=== PATIENT | male | born 1960 | race Caucasian/White ===

== ENCOUNTER → 2018-06-17 | Outpatient (CLI) | payer OTHER ==
[~2018-06-17] MED LIST: ALBU90OI INH; Bactrim Ds Tab1 EACH PO; CEPH500 PO; CIPR500 PO; CIPRO500 MG PO; CLIN300 PO; CYCL10 PO; Cipro500 MG PO; ERYT.5TO RIGHTEYE; HYDACE5 PO; IBUP800 PO; LEVFLO500 PO; NAPR500 PO; Norco 10-325 T1 EACH PO; Norco 5-325 Ta1 EACH PO; ONDA4ODT MM; OXYACE5T PO; PENVK500 PO; Percocet 5-3251 EACH PO; Pyridium200 MG PO; RXCLIN PO; RXHYD5325 PO; RXHYDACE PO; RXOXYACE PO; RXPENVK250 PO; SPACE CHAMBER1 EACH MC; SULTRIDS PO; TAMS.4ER PO; TRAM50 PO; Zofran Odt8 MG SL
[2018-06-19 03:14] LABS: HBSAG SCREEN Negative (Negative); HEP A AB, IGM Negative (Negative); HEP B CORE AB, IGM Negative (Negative); HEP C VIRUS AB <0.1 (0.0-0.9); HIV SCREEN 4TH GENERATION WRFX Non Reactive (Non Reactive)
[2018-06-19 23:09] LABS: CHLAMYDIA TRACHOMATIS, NAA Negative (Negative); NEISSERIA GONORRHOEAE, NAA Negative (Negative)
== END | disposition home or self-care (01) ==
LOC: LAB EV 17:09 → LAB SHORT 17:09
PROVIDERS: Physician Assistant Medical
DX: N39.0 Urinary tract infection, site not specified (principal)
CPT/HCPCS: 80074; 86592; 87086; 87389; 87491; 87591

== ENCOUNTER → 2018-06-23 | Outpatient (CLI) | payer OTHER | LOC: LAB EV 17:14 → LAB SHORT 17:14 | DX: N39.0 Urinary tract infection, site not specified (principal) | CPT/HCPCS: 87086 ==

== ENCOUNTER → 2018-07-04 | Outpatient (CLI) | payer OTHER ==
[2018-07-04 11:58] LABS: Source, Urine Clean Catch
[2018-07-04 12:06] LABS: Bacteria Many /hpf; Squamous Epithelial Cells Rare /hpf (Few); White Blood Cells, Urine TNTC /hpf (0-5)
[2018-07-04 12:15] LABS: BASOPHILS ABSOLUTE AUTO 0.07 K/mm3 (0.00-0.23); BASOPHILS PERCENT AUTO 1 % (0-2); EOSINOPHILS ABSOLUTE AUTO 0.19 K/mm3 (0.00-0.68); EOSINOPHILS PERCENT AUTO 1 % (0-6); Hematocrit 39.9 % (37.0-53.0); Hemoglobin 13.6 g/dL (13.5-17.5); IMMATURE GRAN ABSOLUTE AUTO 0.05 K/mm3 (0.00-0.10); IMMATURE GRAN PERCENT AUTO 0 % (0-1); LYMPHOCYTES ABSOLUTE AUTO 1.79 K/mm3 (0.84-5.20); LYMPHOCYTES PERCENT AUTO 12 % (21-46); MONOCYTES ABSOLUTE AUTO 1.45 K/mm3 (0.16-1.47); MONOCYTES PERCENT AUTO 10 % (4-13); Mean Corpuscular HGB 29.1 pg (26.0-34.0); Mean Corpuscular HGB Conc 34.1 g/dL (31.5-36.5); Mean Corpuscular Volume 85 fL (80-100); NEUTROPHILS ABSOLUTE AUTO 11.71 K/mm3 (1.96-9.15); NEUTROPHILS PERCENT AUTO 77 % (41-73); Platelet Count 366 K/mm3 (150-400); RDW Coefficient Variation 12.4 % (11.7-14.2); RDW Standard Deviation 38.2 fL (35.1-46.3); Red Blood Cell Count 4.68 M/mm3 (4.30-5.90); White Blood Cell Count 15.26 K/mm3 (4.00-11.30)
[2018-07-04 12:29] LABS: Albumin, Blood 3.3 g/dL (3.4-5.0); Albumin/Globulin Ratio 0.8 (0.8-1.8); Bilirubin, Total 1.1 mg/dL (0.1-1.0); Bun/Creatinine Ratio 10.3 (12.0-20.0); Calcium, Blood 8.9 mg/dL (8.5-10.1); Creatinine, Blood 1.36 mg/dL (0.60-1.20); Globulin, Blood 3.9 g/dL (2.2-4.0); Potassium, Blood 4.4 mmol/L (3.5-5.5); Total Protein, Blood 7.2 g/dL (6.4-8.2)
[2018-07-04 17:43] LABS: PSA, %Free 7.9 %
== END | disposition home or self-care (01) ==
LOC: LAB SHORT 11:57 → LAB EV 11:57
PROVIDERS: General Practice
DX: R31.9 Hematuria, unspecified (principal); R30.0 Dysuria
CPT/HCPCS: 80053; 81015; 84153; 84154; 85025; 87086

== ENCOUNTER 2019-02-18 06:58 | Emergency (ER) | payer OTHER ==
[~2019-02-18] VITALS: Ht 190.5 cm; Wt 90.7 kg
[2019-02-18 07:34] LABS: BASOPHILS ABSOLUTE AUTO 0.06 K/mm3 (0.00-0.23); BASOPHILS PERCENT AUTO 1 % (0-2); EOSINOPHILS ABSOLUTE AUTO 0.07 K/mm3 (0.00-0.68); EOSINOPHILS PERCENT AUTO 1 % (0-6); Hematocrit 39.5 % (37.0-53.0); Hemoglobin 13.5 g/dL (13.5-17.5); IMMATURE GRAN ABSOLUTE AUTO 0.05 K/mm3 (0.00-0.10); IMMATURE GRAN PERCENT AUTO 0 % (0-1); LYMPHOCYTES ABSOLUTE AUTO 1.23 K/mm3 (0.84-5.20); LYMPHOCYTES PERCENT AUTO 9 % (21-46); MONOCYTES PERCENT AUTO 6 % (4-13); Mean Corpuscular HGB Conc 34.2 g/dL (31.5-36.5); Mean Corpuscular Volume 85 fL (80-100); Mean Platelet Volume 9.6 fL (9.1-12.4); NEUTROPHILS ABSOLUTE AUTO 10.83 K/mm3 (1.96-9.15); NEUTROPHILS PERCENT AUTO 83 % (41-73); Platelet Count 291 K/mm3 (150-400); RDW Coefficient Variation 11.9 % (11.7-14.2); RDW Standard Deviation 36.3 fL (35.1-46.3); Red Blood Cell Count 4.66 M/mm3 (4.30-5.90); White Blood Cell Count 13.04 K/mm3 (4.00-11.30)
[2019-02-18 07:53] LABS: Alanine Aminotransfer (ALT/SGP 28 U/L (12-78); Albumin, Blood 3.4 g/dL (3.4-5.0); Albumin/Globulin Ratio 0.8 (0.8-1.8); Alk Phos 110 U/L (50-136); Anion Gap 9 mmol/L (6-16); Aspartate Aminotrans (AST/SGOT 15 U/L (12-37); Bilirubin, Total 0.9 mg/dL (0.1-1.0); Blood Urea Nitrogen 28 mg/dL (8-24); Bun/Creatinine Ratio 23.9 (12.0-20.0); CO2, Blood 25 mmol/L (21-32); Calcium, Blood 9.2 mg/dL (8.5-10.1); Chloride, Blood 100 mmol/L (98-108); Creatinine, Blood 1.17 mg/dL (0.60-1.20); Globulin, Blood 4.1 g/dL (2.2-4.0); Glomerular Filtration Rate >60 (60-); Glucose, Blood 418 mg/dL (70-99); Potassium, Blood 3.8 mmol/L (3.5-5.5); Sodium, Blood 134 mmol/L (136-145); Total Protein, Blood 7.5 g/dL (6.4-8.2)
[2019-02-18 08:07] LABS: Source, Urine Clean Catch
[2019-02-18 08:10] LABS: Bilirubin, Urine Neg (Neg); Blood, Urine 5+ (Neg); Glucose Qualitative, Urine 4+ (Neg); Ketones, Urine 1+ (Neg); Leukocyte Esterase, Urine 3+ (Neg); Nitrite, Urine Neg (Neg); Protein, Urine 2+ (Neg); Urobilinogen, Urine NORM (Normal)
[2019-02-18 08:24] LABS: Appearance, Urine Cloudy (Clear); Color, Urine Yellow (P-Yellow)
[2019-02-18 08:28] LABS: White Blood Cells, Urine TNTC /hpf (0-5)
[2019-02-18 08:29] LABS: Bacteria Few /hpf; Squamous Epithelial Cells Rare /hpf (Few)
== END 2019-02-18 11:52 | disposition left against medical advice (07) ==
LOC: ER 06:58
PROVIDERS: Emergency Medicine
DX: N13.6 Pyonephrosis (principal); Z87.442 Personal history of urinary calculi; Z87.891 Personal history of nicotine dependence
CPT/HCPCS: 51702; 74176; 80053; 81001; 83690; 85025; 87086; 87147; 96374-59; 96375-59; 99284-25; J0696; J2405; J3010; J7030

== ENCOUNTER 2019-02-18 12:35 | Emergency (ER) | payer OTHER ==
[~2019-02-18] VITALS: Ht 190.5 cm; Wt 86.2 kg
== END 2019-02-18 15:19 | disposition short-term general hospital (02) ==
LOC: ER 12:35
DX: N20.0 Calculus of kidney (principal); Z87.442 Personal history of urinary calculi; Z87.891 Personal history of nicotine dependence
CPT/HCPCS: 99284

== ENCOUNTER 2019-02-24 20:02 | Emergency (ER) | payer OTHER ==
[~2019-02-24] VITALS: Ht 190.5 cm; Wt 81.7 kg
== END 2019-02-24 20:33 | disposition home or self-care (01) ==
LOC: ER 20:02
DX: N20.0 Calculus of kidney (principal); Z87.891 Personal history of nicotine dependence
CPT/HCPCS: 99283

== ENCOUNTER 2019-03-20 19:39 | Emergency (ER) | payer OTHER ==
[~2019-03-20] VITALS: Ht 190.5 cm; Wt 86.2 kg
== END 2019-03-20 20:42 | disposition left against medical advice (07) ==
LOC: ER 19:39
DX: Z53.21 Procedure and treatment not carried out due to patient leaving prior to being seen by health care provider (principal)

== ENCOUNTER → 2019-05-02 | Outpatient (CLI) | payer OTHER | LOC: LAB SHORT 14:26 → LAB EV 14:26 | DX: R33.9 Retention of urine, unspecified (principal) | CPT/HCPCS: 87077; 87086; 87186 ==

== ENCOUNTER → 2019-05-28 | Outpatient (CLI) | payer OTHER | LOC: LAB SHORT 09:50 → LAB EV 09:50 | DX: B99.9 Unspecified infectious disease (principal) | CPT/HCPCS: 87086 ==

== ENCOUNTER 2019-06-24 09:40 | Emergency (ER) | payer OTHER ==
[~2019-06-24] VITALS: Ht 190.5 cm; Wt 79.4 kg
[2019-06-24 11:16] LABS: BASOPHILS ABSOLUTE AUTO 0.04 K/mm3 (0.00-0.23); BASOPHILS PERCENT AUTO 1 % (0-2); EOSINOPHILS ABSOLUTE AUTO 0.18 K/mm3 (0.00-0.68); EOSINOPHILS PERCENT AUTO 3 % (0-6); Hematocrit 37.8 % (37.0-53.0); Hemoglobin 12.3 g/dL (13.5-17.5); IMMATURE GRAN ABSOLUTE AUTO 0.01 K/mm3 (0.00-0.10); IMMATURE GRAN PERCENT AUTO 0 % (0-1); LYMPHOCYTES ABSOLUTE AUTO 1.83 K/mm3 (0.84-5.20); LYMPHOCYTES PERCENT AUTO 27 % (21-46); MONOCYTES ABSOLUTE AUTO 0.38 K/mm3 (0.16-1.47); MONOCYTES PERCENT AUTO 6 % (4-13); Mean Corpuscular HGB 27.6 pg (26.0-34.0); Mean Corpuscular HGB Conc 32.5 g/dL (31.5-36.5); Mean Corpuscular Volume 85 fL (80-100); Mean Platelet Volume 9.2 fL (9.1-12.4); NEUTROPHILS ABSOLUTE AUTO 4.26 K/mm3 (1.96-9.15); NEUTROPHILS PERCENT AUTO 64 % (41-73); Platelet Count 341 K/mm3 (150-400); RDW Coefficient Variation 13.7 % (11.7-14.2); RDW Standard Deviation 42.3 fL (35.1-46.3); Red Blood Cell Count 4.46 M/mm3 (4.30-5.90)
[2019-06-24 11:40] LABS: Alanine Aminotransfer (ALT/SGP 16 U/L (12-78); Albumin, Blood 3.4 g/dL (3.4-5.0); Albumin/Globulin Ratio 0.7 (0.8-1.8); Alk Phos 113 U/L (50-136); Anion Gap 6 mmol/L (6-16); Aspartate Aminotrans (AST/SGOT 8 U/L (12-37); Bilirubin, Total 0.8 mg/dL (0.1-1.0); Blood Urea Nitrogen 22 mg/dL (8-24); Bun/Creatinine Ratio 24.8 (12.0-20.0); CO2, Blood 23 mmol/L (21-32); Calcium, Blood 9.1 mg/dL (8.5-10.1); Chloride, Blood 101 mmol/L (98-108); Creatinine, Blood 0.89 mg/dL (0.60-1.20); Ethanol (Alcohol), Blood, Med <3 mg/dL; Globulin, Blood 4.8 g/dL (2.2-4.0); Glomerular Filtration Rate >60 (60-); Glucose, Blood 576 mg/dL (70-99); Salicylate <1.7 mg/dL (2.8-20.0); Sodium, Blood 130 mmol/L (136-145); Total Protein, Blood 8.2 g/dL (6.4-8.2)
[2019-06-24 11:43] LABS: Acetaminophen, Random <2.0 ug/mL (10.0-30.0)
== END 2019-06-24 13:15 | disposition home or self-care (01) ==
LOC: ER 09:40
PROVIDERS: Emergency Medicine
DX: F41.9 Anxiety disorder, unspecified (principal); F32.9 Major depressive disorder, single episode, unspecified; Z96.0 Presence of urogenital implants; F17.220 Nicotine dependence, chewing tobacco, uncomplicated
CPT/HCPCS: 51702; 80053; 84443; 85025; 99284-25; G0480

== ENCOUNTER → 2019-06-24 | Outpatient (CLI) | payer OTHER | LOC: LAB EV 08:07 → LAB SHORT 08:07 | DX: T83.518A Infection and inflammatory reaction due to other urinary catheter, initial encounter (principal) | CPT/HCPCS: 87086 ==

== ENCOUNTER 2019-07-06 12:52 | Emergency (ER) | payer OTHER ==
[~2019-07-06] VITALS: Ht 190.5 cm; Wt 79.4 kg
== END 2019-07-06 16:25 | disposition left against medical advice (07) ==
LOC: ER 12:52
DX: Z53.21 Procedure and treatment not carried out due to patient leaving prior to being seen by health care provider (principal)

== ENCOUNTER → 2019-08-11 | Outpatient (CLI) | payer OTHER | LOC: LAB SHORT 09:30 → LAB EV 09:30 | DX: R30.0 Dysuria (principal) | CPT/HCPCS: 87077; 87086; 87147; 87186 ==

== ENCOUNTER 2020-08-04 15:09 | Emergency (ER) | payer OTHER ==
[~2020-08-04] VITALS: Ht 190.5 cm; Wt 77.1 kg
[2020-08-04 15:44] LABS: BASOPHILS ABSOLUTE AUTO 0.05 K/mm3 (0.00-0.23); BASOPHILS PERCENT AUTO 1 % (0-2); EOSINOPHILS PERCENT AUTO 1 % (0-6); Hematocrit 38.7 % (37.0-53.0); Hemoglobin 13.2 g/dL (13.5-17.5); IMMATURE GRAN ABSOLUTE AUTO 0.02 K/mm3 (0.00-0.10); IMMATURE GRAN PERCENT AUTO 0 % (0-1); LYMPHOCYTES ABSOLUTE AUTO 1.77 K/mm3 (0.84-5.20); LYMPHOCYTES PERCENT AUTO 24 % (21-46); MONOCYTES ABSOLUTE AUTO 0.48 K/mm3 (0.16-1.47); MONOCYTES PERCENT AUTO 7 % (4-13); Mean Corpuscular HGB 29.9 pg (26.0-34.0); Mean Corpuscular HGB Conc 34.1 g/dL (31.5-36.5); Mean Corpuscular Volume 88 fL (80-100); Mean Platelet Volume 9.5 fL (9.1-12.4); NEUTROPHILS ABSOLUTE AUTO 4.82 K/mm3 (1.96-9.15); NEUTROPHILS PERCENT AUTO 67 % (41-73); Platelet Count 290 K/mm3 (150-400); RDW Coefficient Variation 12.5 % (11.7-14.2); RDW Standard Deviation 40.4 fL (35.1-46.3); Red Blood Cell Count 4.42 M/mm3 (4.30-5.90); White Blood Cell Count 7.24 K/mm3 (4.00-11.30)
[2020-08-04 16:02] LABS: Alanine Aminotransfer (ALT/SGP 31 U/L (12-78); Albumin, Blood 3.5 g/dL (3.4-5.0); Albumin/Globulin Ratio 0.9 (0.8-1.8); Alk Phos 135 U/L (50-136); Anion Gap 9 mmol/L (6-16); Aspartate Aminotrans (AST/SGOT 13 U/L (12-37); Bilirubin, Total 1.5 mg/dL (0.1-1.0); Blood Urea Nitrogen 18 mg/dL (8-24); Bun/Creatinine Ratio 20.8 (12.0-20.0); CO2, Blood 24 mmol/L (21-32); Calcium, Blood 9.1 mg/dL (8.5-10.1); Chloride, Blood 98 mmol/L (98-108); Creatinine, Blood 0.87 mg/dL (0.60-1.20); Glomerular Filtration Rate >60 (60-); Glucose, Blood 636 mg/dL (70-99); Potassium, Blood 4.5 mmol/L (3.5-5.5); Sodium, Blood 131 mmol/L (136-145); Total Protein, Blood 7.5 g/dL (6.4-8.2)
== END 2020-08-06 16:12 | disposition left against medical advice (07) ==
LOC: ER 15:09
PROVIDERS: Physician Assistant
DX: R53.1 Weakness (principal); R06.02 Shortness of breath; Z53.21 Procedure and treatment not carried out due to patient leaving prior to being seen by health care provider
CPT/HCPCS: 36415; 80053; 83690; 85025; 93005; 93010; 99283-25

== ENCOUNTER 2020-10-01 11:28 | Emergency (ER) | payer OTHER ==
[~2020-10-01] VITALS: Ht 190.5 cm; Wt 74.8 kg
[2020-10-01 12:14] LABS: BASOPHILS ABSOLUTE AUTO 0.04 K/mm3 (0.00-0.23); BASOPHILS PERCENT AUTO 1 % (0-2); EOSINOPHILS ABSOLUTE AUTO 0.15 K/mm3 (0.00-0.68); EOSINOPHILS PERCENT AUTO 2 % (0-6); Hemoglobin 13.4 g/dL (13.5-17.5); IMMATURE GRAN ABSOLUTE AUTO 0.02 K/mm3 (0.00-0.10); IMMATURE GRAN PERCENT AUTO 0 % (0-1); LYMPHOCYTES ABSOLUTE AUTO 2.05 K/mm3 (0.84-5.20); LYMPHOCYTES PERCENT AUTO 29 % (21-46); MONOCYTES ABSOLUTE AUTO 0.52 K/mm3 (0.16-1.47); MONOCYTES PERCENT AUTO 7 % (4-13); Mean Corpuscular HGB 29.9 pg (26.0-34.0); Mean Corpuscular HGB Conc 33.5 g/dL (31.5-36.5); Mean Corpuscular Volume 89 fL (80-100); Mean Platelet Volume 9.1 fL (9.1-12.4); NEUTROPHILS ABSOLUTE AUTO 4.27 K/mm3 (1.96-9.15); NEUTROPHILS PERCENT AUTO 61 % (41-73); Platelet Count 345 K/mm3 (150-400); RDW Coefficient Variation 12.9 % (11.7-14.2); RDW Standard Deviation 42.1 fL (35.1-46.3); Red Blood Cell Count 4.48 M/mm3 (4.30-5.90); White Blood Cell Count 7.05 K/mm3 (4.00-11.30)
[2020-10-01 12:34] LABS: Alanine Aminotransfer (ALT/SGP 13 U/L (12-78); Albumin, Blood 3.4 g/dL (3.4-5.0); Albumin/Globulin Ratio 0.8 (0.8-1.8); Alk Phos 74 U/L (50-136); Anion Gap 9 mmol/L (6-16); Aspartate Aminotrans (AST/SGOT 7 U/L (12-37); Blood Urea Nitrogen 26 mg/dL (8-24); Bun/Creatinine Ratio 22.8 (12.0-20.0); CO2, Blood 24 mmol/L (21-32); Calcium, Blood 9.2 mg/dL (8.5-10.1); Chloride, Blood 100 mmol/L (98-108); Creatinine, Blood 1.14 mg/dL (0.60-1.20); Globulin, Blood 4.1 g/dL (2.2-4.0); Glomerular Filtration Rate >60 (60-); Glucose, Blood 411 mg/dL (70-99); Potassium, Blood 4.2 mmol/L (3.5-5.5); Sodium, Blood 133 mmol/L (136-145); Total Protein, Blood 7.5 g/dL (6.4-8.2)
== END 2020-10-01 15:28 | disposition home or self-care (01) ==
LOC: ER 11:28
PROVIDERS: Physician Assistant
DX: E11.65 Type 2 diabetes mellitus with hyperglycemia (principal); E11.9 Type 2 diabetes mellitus without complications; F17.220 Nicotine dependence, chewing tobacco, uncomplicated
CPT/HCPCS: 36415; 71046; 80053; 82010; 82800; 82947; 85025; 93005; 93010; 99285-25; J1815; J7030

== ENCOUNTER 2020-10-07 11:45 | Emergency (ER) | payer OTHER ==
[~2020-10-07] VITALS: Ht 188 cm; Wt 75.8 kg
[2020-10-07 13:25] LABS: Calcium, Ionized (POC) 1.27 mmol/L (1.10-1.46); Chloride (POC) 99 mmol/L (98-108); Creatinine (POC) 1.1 mg/dL (0.8-1.3); Glucose (ISTAT POC) 402 mg/dL (70-99); Hemoglobin (POC) 12.9 g/dL (13.5-17.5); Potassium (POC) 4.5 mmol/L (3.5-5.5); Sodium (POC) 137 mmol/L (135-148); Total CO2 (POC) 30 mmol/L (21-32)
[2020-10-07 13:36] LABS: Base Excess Venous 5.1 mmol/L; Bicarbonate Venous 28.2 mmol/L (24.0-30.0); PO2 Venous 83.1 mmHg (38-42); pH Blood Venous 7.41 (7.34-7.37)
== END 2020-10-07 14:12 | disposition left against medical advice (07) ==
LOC: ER 11:45
PROVIDERS: Emergency Medicine
DX: E11.65 Type 2 diabetes mellitus with hyperglycemia (principal); Z87.442 Personal history of urinary calculi; Z87.891 Personal history of nicotine dependence
CPT/HCPCS: 36415; 80047; 82803; 82947; 85014; 99283

== ENCOUNTER 2020-10-07 17:32 | Emergency (ER) | payer OTHER | END 2020-10-07 18:01 | disposition left against medical advice (07) | LOC: ER 17:32 | DX: Z53.21 Procedure and treatment not carried out due to patient leaving prior to being seen by health care provider (principal) ==

== ENCOUNTER 2021-03-05 17:33 | Emergency (ER) | payer OTHER ==
[~2021-03-05] VITALS: Ht 177.8 cm; Wt 77.1 kg
[2021-03-05 18:12] LABS: BASOPHILS ABSOLUTE AUTO 0.05 K/mm3 (0.00-0.23); BASOPHILS PERCENT AUTO 1 % (0-2); EOSINOPHILS ABSOLUTE AUTO 0.07 K/mm3 (0.00-0.68); EOSINOPHILS PERCENT AUTO 1 % (0-6); Hematocrit 38.9 % (37.0-53.0); Hemoglobin 13.4 g/dL (13.5-17.5); IMMATURE GRAN ABSOLUTE AUTO 0.04 K/mm3 (0.00-0.10); IMMATURE GRAN PERCENT AUTO 0 % (0-1); LYMPHOCYTES ABSOLUTE AUTO 1.58 K/mm3 (0.84-5.20); LYMPHOCYTES PERCENT AUTO 17 % (21-46); MONOCYTES ABSOLUTE AUTO 0.56 K/mm3 (0.16-1.47); MONOCYTES PERCENT AUTO 6 % (4-13); Mean Corpuscular HGB 28.9 pg (26.0-34.0); Mean Corpuscular HGB Conc 34.4 g/dL (31.5-36.5); Mean Corpuscular Volume 84 fL (80-100); Mean Platelet Volume 9.7 fL (9.1-12.4); NEUTROPHILS ABSOLUTE AUTO 7.22 K/mm3 (1.96-9.15); NEUTROPHILS PERCENT AUTO 76 % (41-73); Platelet Count 337 K/mm3 (150-400); RDW Coefficient Variation 12.9 % (11.7-14.2); RDW Standard Deviation 39.3 fL (35.1-46.3); Red Blood Cell Count 4.64 M/mm3 (4.30-5.90); White Blood Cell Count 9.52 K/mm3 (4.00-11.30)
[2021-03-05 18:26] LABS: Source, Urine Clean Catch
[2021-03-05 18:31] LABS: Appearance, Urine Cloudy (Clear); Bilirubin, Urine Neg (Neg); Blood, Urine 2+ (Neg); Color, Urine Yellow (P-Yellow); Glucose Qualitative, Urine 4+ (Neg); Ketones, Urine 4+ (Neg); Leukocyte Esterase, Urine 3+ (Neg); Nitrite, Urine Neg (Neg); Protein, Urine 2+ (Neg); Urobilinogen, Urine NORM (Normal)
[2021-03-05 18:37] LABS: Bicarbonate Venous 16.2 mmol/L (24.0-30.0); PCO2 Venous 28.1 mmHg (38-42); PO2 Venous 63.2 mmHg (38-42); pH Blood Venous 7.31 (7.34-7.37)
[2021-03-05 18:40] LABS: Alanine Aminotransfer (ALT/SGP 18 U/L (12-78); Albumin, Blood 3.5 g/dL (3.4-5.0); Albumin/Globulin Ratio 0.8 (0.8-1.8); Alk Phos 89 U/L (50-136); Anion Gap 19 mmol/L (6-16); Aspartate Aminotrans (AST/SGOT 11 U/L (12-37); Bilirubin, Total 1.6 mg/dL (0.1-1.0); Blood Urea Nitrogen 30 mg/dL (8-24); Bun/Creatinine Ratio 24.2 (12.0-20.0); CO2, Blood 15 mmol/L (21-32); Calcium, Blood 9.8 mg/dL (8.5-10.1); Chloride, Blood 97 mmol/L (98-108); Creatinine, Blood 1.24 mg/dL (0.60-1.20); Globulin, Blood 4.2 g/dL (2.2-4.0); Glomerular Filtration Rate 60 (60-); Glucose, Blood 581 mg/dL (70-99); Sodium, Blood 131 mmol/L (136-145); Total Protein, Blood 7.7 g/dL (6.4-8.2)
[2021-03-05 18:43] LABS: White Blood Cells, Urine 50-100 /hpf (0-5)
[2021-03-05 18:46] LABS: Bacteria Rare /hpf; Squamous Epithelial Cells Rare /hpf (Few)
[2021-03-05 18:52] LABS: Yeast/Fungi Urine Many /hpf
[2021-03-05 21:11] LABS: Anion Gap 14 mmol/L (6-16); Blood Urea Nitrogen 25 mg/dL (8-24); Bun/Creatinine Ratio 25.2 (12.0-20.0); CO2, Blood 20 mmol/L (21-32); Chloride, Blood 105 mmol/L (98-108); Creatinine, Blood 0.99 mg/dL (0.60-1.20); Glomerular Filtration Rate >60 (60-); Glucose, Blood 258 mg/dL (70-99); Potassium, Blood 3.6 mmol/L (3.5-5.5); Sodium, Blood 139 mmol/L (136-145)
[2021-03-05] MEDS ORDERED: CEFP200 PO (22:49)
== END 2021-03-05 22:58 | disposition home or self-care (01) ==
LOC: ER 17:33
PROVIDERS: Physician Assistant
DX: E11.10 Type 2 diabetes mellitus with ketoacidosis without coma (principal); E11.65 Type 2 diabetes mellitus with hyperglycemia; N39.0 Urinary tract infection, site not specified
CPT/HCPCS: 51701; 51798; 80048; 80053; 81001; 82803; 82947; 83690; 83735; 84100; 85025; 87086; 93005; 93010; 96365; 96366; 96367; 96375; 99285-25; A9270; J0696; J1815; J2270; J2405; J2765; J3480; J7030

== ENCOUNTER → 2021-04-03 | Outpatient (CLI) | payer OTHER ==
[~2021-04-03] MED LIST changes: +CEFP200 PO
== END ==
LOC: LAB SHORT 07:09 → LAB 07:09
DX: L60.2 Onychogryphosis (principal)
CPT/HCPCS: 88305; 88312

== ENCOUNTER 2021-09-26 02:38 | Emergency (ER) | payer OTHER ==
[2021-09-26 07:45] LABS: Base Excess Venous -3.8 mmol/L; Bicarbonate Venous 20.8 mmol/L (24.0-30.0); PCO2 Venous 45.4 mmHg (38-42); PO2 Venous 47.5 mmHg (38-42)
[2021-09-26 09:16] LABS: Albumin, Blood 3.8 g/dL (3.4-5.0); Albumin/Globulin Ratio 1.1 (0.8-1.8); Bilirubin, Total 1.2 mg/dL (0.1-1.0); Bun/Creatinine Ratio 20.8 (12.0-20.0); Calcium, Blood 9.5 mg/dL (8.5-10.1); Creatinine, Blood 1.06 mg/dL (0.60-1.20); Globulin, Blood 3.6 g/dL (2.2-4.0); Potassium, Blood 3.9 mmol/L (3.5-5.5); Total Protein, Blood 7.4 g/dL (6.4-8.2)
[2021-09-26 09:34] LABS: Beta-hydroxybutyrate 37.8 mg/dL (0.2-2.8)
[2021-09-26 09:35] LABS: Hematocrit 39.1 % (37.0-53.0); Hemoglobin 13.4 g/dL (13.5-17.5); Mean Corpuscular HGB 28.6 pg (26.0-34.0); Mean Corpuscular HGB Conc 34.3 g/dL (31.5-36.5); Mean Corpuscular Volume 84 fL (80-100); Mean Platelet Volume 10.4 fL (9.1-12.4); Platelet Count 297 K/mm3 (150-400); RDW Coefficient Variation 12.1 % (11.7-14.2); RDW Standard Deviation 36.6 fL (35.1-46.3); Red Blood Cell Count 4.68 M/mm3 (4.30-5.90); White Blood Cell Count 9.98 K/mm3 (4.00-11.30)
[2021-09-28] MEDS ORDERED: CAPSAICIN60 G1 TOP (05:35)
[2021-09-28] MEDS ORDERED: PROM12.5S PR (05:35)
[2021-09-28] MEDS ORDERED: CEFP200 PO (05:39)
== END 2021-09-26 05:30 | disposition left against medical advice (07) ==
LOC: ER 02:38
PROVIDERS: Student in an Organized Health Care Education/Training Program
DX: E11.10 Type 2 diabetes mellitus with ketoacidosis without coma (principal); E11.65 Type 2 diabetes mellitus with hyperglycemia; R11.2 Nausea with vomiting, unspecified; Z91.19 Patient's noncompliance with other medical treatment and regimen
CPT/HCPCS: 71045; 80053; 82010; 82803; 83690; 85027; 96374; 96375; 99284-25

== ENCOUNTER 2021-09-30 10:49 | Inpatient (IN) | payer OTHER ==
[~2021-09-30] VITALS: Ht 190.5 cm; Wt 72.0 kg
[~2021-09-30 10:49] MED LIST changes: +CAPSAICIN60 G1 TOP; +PROM12.5S PR
[2021-09-30 11:09] LABS: Source, Urine Straight Cath
[2021-09-30 11:17] LABS: Bilirubin, Urine Neg (Neg); Blood, Urine 3+ (Neg); Color, Urine Yellow (P-Yellow); Glucose Qualitative, Urine 4+ (Neg); Ketones, Urine 4+ (Neg); Leukocyte Esterase, Urine 3+ (Neg); Nitrite, Urine Neg (Neg); Protein, Urine 3+ (Neg); Specific Gravity, Urine 1.025 (1.003-1.022); Urobilinogen, Urine NORM (Normal)
[2021-09-30 11:28] LABS: Base Excess Venous -16.6 mmol/L; Bicarbonate Venous 12.9 mmol/L (24.0-30.0); PCO2 Venous 31.7 mmHg (38-42); PO2 Venous 41.3 mmHg (38-42)
[2021-09-30 11:38] LABS: Appearance, Urine Turbid (Clear)
[2021-09-30 11:44] LABS: BASOPHILS ABSOLUTE AUTO 0.04 K/mm3 (0.00-0.23); BASOPHILS PERCENT AUTO 0 % (0-2); EOSINOPHILS PERCENT AUTO 0 % (0-6); Hemoglobin 17.5 g/dL (13.5-17.5); IMMATURE GRAN ABSOLUTE AUTO 0.06 K/mm3 (0.00-0.10); IMMATURE GRAN PERCENT AUTO 0 % (0-1); LYMPHOCYTES ABSOLUTE AUTO 0.96 K/mm3 (0.84-5.20); LYMPHOCYTES PERCENT AUTO 5 % (21-46); MONOCYTES ABSOLUTE AUTO 1.33 K/mm3 (0.16-1.47); MONOCYTES PERCENT AUTO 7 % (4-13); Mean Corpuscular HGB 29.2 pg (26.0-34.0); Mean Corpuscular HGB Conc 34.3 g/dL (31.5-36.5); Mean Corpuscular Volume 85 fL (80-100); Mean Platelet Volume 9.9 fL (9.1-12.4); NEUTROPHILS ABSOLUTE AUTO 16.17 K/mm3 (1.96-9.15); NEUTROPHILS PERCENT AUTO 87 % (41-73); Platelet Count 410 K/mm3 (150-400); RDW Coefficient Variation 12.3 % (11.7-14.2); Red Blood Cell Count 5.99 M/mm3 (4.30-5.90); White Blood Cell Count 18.56 K/mm3 (4.00-11.30)
[2021-09-30 11:55] LABS: White Blood Cells, Urine TNTC /hpf (0-5)
[2021-09-30 11:56] LABS: Bacteria Many /hpf; Squamous Epithelial Cells Not Seen /hpf (Few); Yeast/Fungi Urine Many /hpf
[2021-09-30 12:24] LABS: Albumin, Blood 4.1 g/dL (3.4-5.0); Albumin/Globulin Ratio 0.9 (0.8-1.8); Beta-hydroxybutyrate 121.6 mg/dL (0.2-2.8); Bilirubin, Total 1.5 mg/dL (0.1-1.0); Bun/Creatinine Ratio 32.3 (12.0-20.0); Calcium, Blood 9.8 mg/dL (8.5-10.1); Creatinine, Blood 1.24 mg/dL (0.60-1.20); Globulin, Blood 4.5 g/dL (2.2-4.0); Potassium, Blood 3.9 mmol/L (3.5-5.5); Total Protein, Blood 8.6 g/dL (6.4-8.2)
[2021-09-30] MEDS ORDERED: BASAGLAR K100 UNIT/1 SC (14:01)
--- NOTE | 2021-09-30 14:39 | NUR ---
ADMIT PT ARRIVES TO ICU 3 VIA GURNEY, MOVED ONTO ICU BED. ASKED PT TO REMOVE HIS SWEATSHIRT SO SO HEART MONITOR WILL BE EASIER TO PLACE AND PT REFUSES BECAUSE HE IS COLD. PT'S SWEATSHIRT ACTUALLY FEELS A LITTLE DAMP, BUT PT REFUSES EVEN WHEN OFFERED DRY GOWN. ALSO REFUSES TO REMOVE HIS SWEATPANTS. WARM BLANKETS GIVEN TO WARM PT UP. PT IS NAUSEOUS AND RETCHING, PRN COMPAZINE GIVEN WITH SOME IMPROVEMENT. ATTEMPETD TO DO BLOOD CONSENT AND TELEPHONE INFORMATION CONSENT BUT PT REFUSES TO ANSWER THOSE QUESTIONS RIGHT NOW AND ASKS TO DO THEM LATER. BLOOD SUGAR 305, INSUGLIN GTT STARTED AT 2 UNITS/HR PER DR. ÁLVAREZ'S ORDER. 2L BOLUS COMPLETED AND NS AT 200ML/HR STARTED. ADMIT COMPLETED MUCH POSSIBLE PT GETS MORE AND MORE IRRITABLE QUESTIONS ARE ASKED AND FREQUENTLY JUST ANSWERES WITH A HEAD NOD OR SHAKE. [place], [place] CLARIFY IF [place] OR IF HE IS HOMELESS. PT STATES HE HAS BEEN OUT OF INSULIN FOR 3 WEEKS BUT WON'T ELABORATE ON THAT ANY FURTHER EITHER.
[2021-09-30 16:54] LABS: Bun/Creatinine Ratio 35.6 (12.0-20.0); Calcium, Blood 8.6 mg/dL (8.5-10.1); Creatinine, Blood 1.04 mg/dL (0.60-1.20); Potassium, Blood 3.4 mmol/L (3.5-5.5)
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
[2021-09-30 17:37] LABS: Source, Urine Foley catheter
[2021-09-30 17:39] LABS: Appearance, Urine Cloudy (Clear); Bilirubin, Urine Neg (Neg); Blood, Urine 4+ (Neg); Glucose Qualitative, Urine 4+ (Neg); Ketones, Urine 4+ (Neg); Leukocyte Esterase, Urine 3+ (Neg); Nitrite, Urine Neg (Neg); Protein, Urine 3+ (Neg); Urobilinogen, Urine NORM (Normal)
[2021-09-30 17:49] LABS: Color, Urine Pale Yellow (P-Yellow); Red Blood Cells, Urine TNTC /hpf (0-2); White Blood Cells, Urine TNTC /hpf (0-5)
[2021-09-30 17:51] LABS: Bacteria Mod /hpf; RBC Cast 0-2 /lpf (0); Squamous Epithelial Cells Rare /hpf (Few)
--- NOTE | 2021-09-30 19:59 | NUR ---
ASSUMED CARE. REPORT RECEIVED FROM OSBALDO RN. PT SLEEPING IN BED ATT, ON ROOM AIR. INSULIN RUNNING AT 4 UNITS/HR, D5 1/2NS AT 125 ML/HR. VS STABLE, WILL CONTINUE TO MONITOR.
[2021-09-30 20:51] LABS: pH Blood Venous 7.18 (7.34-7.37)
[2021-09-30 21:03] LABS: Calcium, Blood 8.7 mg/dL (8.5-10.1); Potassium, Blood 3.1 mmol/L (3.5-5.5)
[2021-10-01 00:57] LABS: Bun/Creatinine Ratio 30.6 (12.0-20.0); Calcium, Blood 8.9 mg/dL (8.5-10.1); Creatinine, Blood 0.92 mg/dL (0.60-1.20); Potassium, Blood 3.4 mmol/L (3.5-5.5)
[2021-10-01 05:24] LABS: BASOPHILS ABSOLUTE AUTO 0.02 K/mm3 (0.00-0.23); BASOPHILS PERCENT AUTO 0 % (0-2); EOSINOPHILS ABSOLUTE AUTO 0.03 K/mm3 (0.00-0.68); EOSINOPHILS PERCENT AUTO 0 % (0-6); Hematocrit 40.5 % (37.0-53.0); Hemoglobin 14.1 g/dL (13.5-17.5); IMMATURE GRAN ABSOLUTE AUTO 0.05 K/mm3 (0.00-0.10); IMMATURE GRAN PERCENT AUTO 0 % (0-1); LYMPHOCYTES ABSOLUTE AUTO 1.55 K/mm3 (0.84-5.20); LYMPHOCYTES PERCENT AUTO 12 % (21-46); MONOCYTES PERCENT AUTO 10 % (4-13); Mean Corpuscular HGB 28.7 pg (26.0-34.0); Mean Corpuscular HGB Conc 34.8 g/dL (31.5-36.5); Mean Corpuscular Volume 83 fL (80-100); Mean Platelet Volume 9.2 fL (9.1-12.4); NEUTROPHILS ABSOLUTE AUTO 10.02 K/mm3 (1.96-9.15); NEUTROPHILS PERCENT AUTO 77 % (41-73); Platelet Count 280 K/mm3 (150-400); RDW Coefficient Variation 12.1 % (11.7-14.2); RDW Standard Deviation 36.5 fL (35.1-46.3); Red Blood Cell Count 4.91 M/mm3 (4.30-5.90); White Blood Cell Count 12.97 K/mm3 (4.00-11.30)
[2021-10-01 05:46] LABS: Calcium, Blood 8.6 mg/dL (8.5-10.1); Creatinine, Blood 0.86 mg/dL (0.60-1.20); Potassium, Blood 3.2 mmol/L (3.5-5.5)
--- NOTE | 2021-10-01 07:00 | NUR ---
ASSUME CARE: I have assumed care of this patient. He is resting in bed. Upon entering room pt began wretching into emesis bag. He is repeatedly requesting food from staff and states that none of the treatment he is receiving is "working". He also notes that the hospital bed is the most uncomfortable bed he has "ever slept in".
--- NOTE | 2021-10-01 07:45 | NUR ---
NAUSEA: Pt called RN to bedside to request assistance with his nausea. RN offered compazine, however pt became irritable and decline, noting that he would like food instead.
--- NOTE | 2021-10-01 07:51 | NUR ---
UPDATE: Pt requesting new nurse after this RN reminded pt that it is not appropriate to cuss or yell at staff. Charge nurse notified and at bedside.
--- NOTE | 2021-10-01 07:58 | NUR ---
UPDATE: Dr. Leon called and updated on pt grievences.
--- NOTE | 2021-10-01 09:14 | NUR ---
UPDATE: Dr Leon was at bedside discussing discharge with pt. data services developer called per providers request. RN placed MAD consult.
[2021-10-01 09:39] LABS: Bun/Creatinine Ratio 29.4 (12.0-20.0); Creatinine, Blood 0.61 mg/dL (0.60-1.20)
[2021-10-01 09:58] LABS: Potassium, Blood 2.4 mmol/L (3.5-5.5)
--- NOTE | 2021-10-01 10:39 | NUR ---
UPDATE: Dr Leon called and notified of pt's most recent potassium of 2.4. She was also notified that pt has not taken is oral potassium this morning. When this RN informes pt of the rational regarding the PO K replacement he states, "I'm not sure if I want to take it yet."
--- NOTE | 2021-10-01 11:44 | NUR ---
LUNCH: Pt given lunch tray and encouraged to eat to maintain blood sugar levels.
--- NOTE | 2021-10-01 13:40 | NUR ---
WRETCHING: Pt wretching again. RN offered him compazine. Pt replies with, "I don't know." He was encouraged to call the RN using call light to request antiemetic.
[2021-10-01 13:47] LABS: Bun/Creatinine Ratio 25.1 (12.0-20.0); Calcium, Blood 7.8 mg/dL (8.5-10.1); Creatinine, Blood 0.8 mg/dL (0.60-1.20); Potassium, Blood 3.7 mmol/L (3.5-5.5)
--- NOTE | 2021-10-01 14:15 | NUR ---
REPORT: Handoff given to GISELA Graham.
--- NOTE | 2021-10-01 15:20 | NUR ---
ASSUMPTION OF CARE RECEIVED HAND-OFF REPORT FROM RN AT APPROXIMATELY 1400. PT IS CURRENTLY RESTING IN BED, C/O NAUSEA THAT IS UNRELIEVED WITH CURRENT MEDICATIONS. PROVIDER NOTIFIED AND NEW ORDERS OBTAINED.
--- NOTE | 2021-10-01 18:24 | NUR ---
SHIFT SUMMARY PT HAS BEEN RESTING IN BED. PT WILL SIT UP AT EDGE OF BED AND REPOSITION SELF FREQUENTLY. PT HAS NOT BEEN ENTIRELY COOPERATIVE WITH CARES. PT HAS USED STRONG LANGUAGE WITH THIS RN WHEN ATTEMPTING TO PROVIDE CARE. PT WILL RELUCTANTLY ALLOW THIS RN TO PERFORM CARES OR ADMINISTER MEDICATIONS ONCE THIS RN HAS EXPLAINED THE IMPORTANCE OF MEDICATIONS OR SCHEDULING. PT HAS OFFERED NO INPUT ON PLAN OF CARE. PT HAS HAD MULTIPLE EPISODES OF NAUSEA WITH WRETCHING THAT ARE RELIEVED WITH MEDICATION. PT HAS ATTEMPTED PO INTAKE OF FLUIDS AND FOOD BUT WAS UNABLE TO CONSUME MUCH BEFORE FEELING NAUSEOUS. VSS.
[2021-10-01 18:59] LABS: Bun/Creatinine Ratio 26.3 (12.0-20.0); Calcium, Blood 8.1 mg/dL (8.5-10.1); Creatinine, Blood 0.76 mg/dL (0.60-1.20); Potassium, Blood 3.8 mmol/L (3.5-5.5)
--- NOTE | 2021-10-01 19:15 | NUR ---
ASSUMED CARE. REPORT RECEIVED FROM OSBALDO HIGGINS. PT SLEEPING IN BED ATT. ON ROOM AIR, PG IN VILMA, IV ACCESS R/AC. NS RUNNING AT 150 ML/HR. CARLTON CATHETER IN PLACE, DRAINING TO GRAVITY. VS STABLE, WILL CONTINUE TO MONITOR.
--- NOTE | 2021-10-02 06:37 | NUR ---
SHIFT SUMMARY. PT RESTED IN BED THROUGHOUT SHIFT. VS STABLE, CARLTON CATHETER REMAINS IN PLACE. NO ACUTE EVENTS OVERNIGHT, SEE SHIFT ASSESSMENT FOR FURTHER DETAILS. WILL CONTINUE TO MONITOR AND REPORT OFF TO DAYSHIFT RN.
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
[2021-10-02] MEDS ORDERED: BASAGLAR K100 UNIT/1 SC (11:05)
[2021-10-02] MEDS ORDERED: ONDA4ODT MM (11:06)
[2021-10-02] MEDS ORDERED: FAMO20 PO (11:12)
[2021-10-02] MEDS ORDERED: HUMALOG KW100 UNIT/1 SC (11:14)
--- NOTE | 2021-10-02 12:29 | NUR ---
DISCHARGE SUMMARY PT WAS UNITERESTED IN DISCHARGE INSTRUCTIONS, PT SPOKE OVER THIS RN DURING ALL INSTRUCTIONS THAT WERE GIVEN. PT STATED "THIS IS ALL JUST TOO MUCH FOR ME TO REMEMBER." WHEN THIS RN ATTEMPTED TO SHOW THE DOCUMENTATION DETAILING THE INSTRUCTIONS PT PUSHED THEM AWAY. PT HAD DISCHARGE PACKET IN THEIR POSSESSION AT TIME OF DISCHARGE. PT WAS TRANSPORTED BY WHEELCHAIR TO PUBLIC TRANSPORTATION.
== END 2021-10-02 12:20 | disposition home or self-care (01) | DRG 638 ==
LOC: ER 10:49 → ICUW 12:46 → ICUE 12:46
PROVIDERS: Emergency Medicine; Internal Medicine; ADMIT Internal Medicine
DX: E11.10 Type 2 diabetes mellitus with ketoacidosis without coma (principal); E87.1 Hypo-osmolality and hyponatremia; R65.10 Systemic inflammatory response syndrome (SIRS) of non-infectious origin without acute organ dysfunction; E86.0 Dehydration; F12.90 Cannabis use, unspecified, uncomplicated; Z91.14 Patient's other noncompliance with medication regimen; Z87.440 Personal history of urinary (tract) infections; Z87.442 Personal history of urinary calculi; Z87.891 Personal history of nicotine dependence; Z79.899 Other long term (current) drug therapy
CPT/HCPCS: 36415; 51701; 51702; 71045; 80048; 80053; 81001; 82010; 82803; 82947; 83036; 83605; 85025; 87086; 87106; 93005; 93010; 96374-59; 96375-59; 99285-25; A9270; C1751; J0696; J0780; J1650; J1815; J2405; J2550; J3480; J7030; J7042

== ENCOUNTER 2022-02-19 08:31 | Emergency (ER) | payer OTHER ==
[~2022-02-19] VITALS: Ht 190.5 cm; Wt 79.4 kg
[~2022-02-19 08:31] MED LIST changes: +BASAGLAR K100 UNIT/1 SC; +FAMO20 PO; +HUMALOG KW100 UNIT/1 SC
[2022-02-19 09:10] LABS: BASOPHILS ABSOLUTE AUTO 0.06 K/mm3 (0.00-0.23); BASOPHILS PERCENT AUTO 1 % (0-2); EOSINOPHILS ABSOLUTE AUTO 0.34 K/mm3 (0.00-0.68); EOSINOPHILS PERCENT AUTO 5 % (0-6); Hematocrit 41.6 % (37.0-53.0); Hemoglobin 14.3 g/dL (13.5-17.5); IMMATURE GRAN ABSOLUTE AUTO 0.01 K/mm3 (0.00-0.10); IMMATURE GRAN PERCENT AUTO 0 % (0-1); LYMPHOCYTES ABSOLUTE AUTO 2.44 K/mm3 (0.84-5.20); LYMPHOCYTES PERCENT AUTO 35 % (21-46); MONOCYTES ABSOLUTE AUTO 0.49 K/mm3 (0.16-1.47); MONOCYTES PERCENT AUTO 7 % (4-13); Mean Corpuscular HGB 29.6 pg (26.0-34.0); Mean Corpuscular HGB Conc 34.4 g/dL (31.5-36.5); Mean Corpuscular Volume 86 fL (80-100); Mean Platelet Volume 9.8 fL (9.1-12.4); NEUTROPHILS ABSOLUTE AUTO 3.55 K/mm3 (1.96-9.15); NEUTROPHILS PERCENT AUTO 52 % (41-73); Platelet Count 255 K/mm3 (150-400); RDW Coefficient Variation 12.1 % (11.7-14.2); RDW Standard Deviation 38.2 fL (35.1-46.3); Red Blood Cell Count 4.83 M/mm3 (4.30-5.90); White Blood Cell Count 6.89 K/mm3 (4.00-11.30)
[2022-02-19 09:24] LABS: Base Excess Venous -0.8 mmol/L; Bicarbonate Venous 23.7 mmol/L (24.0-30.0); PCO2 Venous 41.7 mmHg (38-42); pH Blood Venous 7.38 (7.34-7.37)
[2022-02-19 09:27] LABS: Magnesium, Blood 2.1 mg/dL (1.6-2.4)
[2022-02-19 09:34] LABS: Albumin, Blood 3.5 g/dL (3.4-5.0); Bun/Creatinine Ratio 17.4 (12.0-20.0); Calcium, Blood 9.1 mg/dL (8.5-10.1); Creatinine, Blood 0.92 mg/dL (0.60-1.20); Globulin, Blood 3.6 g/dL (2.2-4.0); Potassium, Blood 4.2 mmol/L (3.5-5.5); Total Protein, Blood 7.1 g/dL (6.4-8.2)
== END 2022-02-19 09:36 | disposition left against medical advice (07) ==
LOC: ER 08:31
PROVIDERS: Physician Assistant
DX: E11.40 Type 2 diabetes mellitus with diabetic neuropathy, unspecified (principal); Z91.14 Patient's other noncompliance with medication regimen; Z53.21 Procedure and treatment not carried out due to patient leaving prior to being seen by health care provider; Z79.899 Other long term (current) drug therapy; Z79.84 Long term (current) use of oral hypoglycemic drugs
CPT/HCPCS: 36415; 80053; 82803; 82947; 83036; 83735; 85025; 99281

== ENCOUNTER → 2022-05-23 | Outpatient (CLI) | payer OTHER ==
[2022-05-23 19:48] LABS: White Blood Cells, Urine TNTC /hpf (0-5)
[2022-05-23 19:50] LABS: Bacteria Mod /hpf; Squamous Epithelial Cells Not Seen /hpf (Few)
== END | disposition home or self-care (01) ==
LOC: LAB SHORT 11:00
PROVIDERS: Internal Medicine
DX: R35.0 Frequency of micturition (principal)
CPT/HCPCS: 81015; 87086

== ENCOUNTER → 2022-05-28 | Outpatient (CLI) | payer OTHER ==
[2022-05-28 19:22] LABS: BASOPHILS ABSOLUTE AUTO 0.07 K/mm3 (0.00-0.23); BASOPHILS PERCENT AUTO 1 % (0-2); EOSINOPHILS ABSOLUTE AUTO 0.31 K/mm3 (0.00-0.68); EOSINOPHILS PERCENT AUTO 5 % (0-6); Hematocrit 44.1 % (37.0-53.0); Hemoglobin 15.1 g/dL (13.5-17.5); IMMATURE GRAN ABSOLUTE AUTO 0.02 K/mm3 (0.00-0.10); IMMATURE GRAN PERCENT AUTO 0 % (0-1); LYMPHOCYTES ABSOLUTE AUTO 1.86 K/mm3 (0.84-5.20); LYMPHOCYTES PERCENT AUTO 27 % (21-46); MONOCYTES ABSOLUTE AUTO 0.52 K/mm3 (0.16-1.47); MONOCYTES PERCENT AUTO 8 % (4-13); Mean Corpuscular HGB Conc 34.2 g/dL (31.5-36.5); Mean Corpuscular Volume 85 fL (80-100); Mean Platelet Volume 9.5 fL (9.1-12.4); NEUTROPHILS ABSOLUTE AUTO 4.02 K/mm3 (1.96-9.15); NEUTROPHILS PERCENT AUTO 59 % (41-73); Platelet Count 337 K/mm3 (150-400); RDW Coefficient Variation 11.9 % (11.7-14.2); Red Blood Cell Count 5.21 M/mm3 (4.30-5.90)
[2022-05-28 22:14] LABS: CPK Creatine Kinase 63 U/L (39-308)
[2022-05-28 22:36] LABS: Alanine Aminotransfer (ALT/SGP 25 U/L (12-78); Albumin, Blood 3.7 g/dL (3.4-5.0); Alk Phos 114 U/L (50-136); Anion Gap 6 mmol/L (6-16); Aspartate Aminotrans (AST/SGOT 12 U/L (12-37); Beta-hydroxybutyrate 1.9 mg/dL (0.2-2.8); Bilirubin, Total 0.8 mg/dL (0.1-1.0); Blood Urea Nitrogen 13 mg/dL (8-24); Bun/Creatinine Ratio 13.9 (12.0-20.0); CHOL/HDL RATIO 2.5; CO2, Blood 29 mmol/L (21-32); Calcium, Blood 9.2 mg/dL (8.5-10.1); Chloride, Blood 97 mmol/L (98-108); Cholesterol 140 mg/dL (50-200); Creatinine, Blood 0.94 mg/dL (0.60-1.20); Globulin, Blood 3.8 g/dL (2.2-4.0); Glomerular Filtration Rate 93 (60-); Glucose, Blood 569 mg/dL (70-99); HDL Cholesterol 55 mg/dL (>39); LDL/HDL RATIO 1.1; Low Density Lipoprotein Chol 58 mg/dL (0-110); Potassium, Blood 4.1 mmol/L (3.5-5.5); Sodium, Blood 132 mmol/L (136-145); Thyroid Stimulating Hormone 0.375 uIU/mL (0.360-4.800); Total Protein, Blood 7.5 g/dL (6.4-8.2); Triglycerides 133 mg/dL (30-160); Very Low Density Lipoprot Chol 26 mg/dL (6-32)
== END | disposition home or self-care (01) ==
LOC: LAB 17:05 → LAB SHORT 17:05
PROVIDERS: Family Medicine
DX: E11.21 Type 2 diabetes mellitus with diabetic nephropathy (principal); E11.42 Type 2 diabetes mellitus with diabetic polyneuropathy; M62.81 Muscle weakness (generalized)
CPT/HCPCS: 80053; 80061; 82010; 82550; 82607; 82746; 84443; 85025; 85651

== ENCOUNTER → 2022-07-19 | Outpatient (CLI) | payer OTHER ==
[2022-07-23 16:09] LABS: FREE TESTOSTERONE(DIRECT) 4.9 pg/mL (6.6-18.1); TESTOSTERONE, SERUM 444 ng/dL (264-916)
== END | disposition home or self-care (01) ==
LOC: LAB SHORT 14:52 → LAB 14:52
PROVIDERS: Family Medicine
DX: E11.21 Type 2 diabetes mellitus with diabetic nephropathy (principal); G62.9 Polyneuropathy, unspecified; M62.81 Muscle weakness (generalized); F52.21 Male erectile disorder
CPT/HCPCS: 83036; 84402; 84403

== ENCOUNTER 2022-09-28 13:48 | Inpatient (IN) | payer OTHER ==
[~2022-09-28] VITALS: Ht 175.3 cm; Wt 73.3 kg
[2022-09-28] VITALS (8 sets, daily range): BP systolic 110–161; BP diastolic 74–95
[~2022-09-28 13:48] MED LIST changes: +INSULIN GL100 UNIT/2 SQ
[2022-09-28 14:24] LABS: BASOPHILS ABSOLUTE AUTO 0.03 K/mm3 (0.00-0.23); BASOPHILS PERCENT AUTO 0 % (0-2); EOSINOPHILS PERCENT AUTO 0 % (0-6); Hematocrit 46.8 % (37.0-53.0); Hemoglobin 16.5 g/dL (13.5-17.5); IMMATURE GRAN ABSOLUTE AUTO 0.06 K/mm3 (0.00-0.10); IMMATURE GRAN PERCENT AUTO 1 % (0-1); LYMPHOCYTES ABSOLUTE AUTO 1.56 K/mm3 (0.84-5.20); LYMPHOCYTES PERCENT AUTO 13 % (21-46); MONOCYTES ABSOLUTE AUTO 0.68 K/mm3 (0.16-1.47); MONOCYTES PERCENT AUTO 6 % (4-13); Mean Corpuscular HGB 28.8 pg (26.0-34.0); Mean Corpuscular HGB Conc 35.3 g/dL (31.5-36.5); Mean Corpuscular Volume 82 fL (80-100); Mean Platelet Volume 9.3 fL (9.1-12.4); NEUTROPHILS ABSOLUTE AUTO 9.61 K/mm3 (1.96-9.15); NEUTROPHILS PERCENT AUTO 80 % (41-73); Platelet Count 377 K/mm3 (150-400); RDW Coefficient Variation 11.9 % (11.7-14.2); RDW Standard Deviation 35.7 fL (35.1-46.3); Red Blood Cell Count 5.72 M/mm3 (4.30-5.90); White Blood Cell Count 11.94 K/mm3 (4.00-11.30)
[2022-09-28 14:46] LABS: Albumin, Blood 3.1 g/dL (3.4-5.0); Albumin/Globulin Ratio 0.9 (0.8-1.8); Bilirubin, Total 1.9 mg/dL (0.1-1.0); Bun/Creatinine Ratio 24.7 (12.0-20.0); Calcium, Blood 8.7 mg/dL (8.5-10.1); Creatinine, Blood 0.89 mg/dL (0.60-1.20); Globulin, Blood 3.5 g/dL (2.2-4.0); Potassium, Blood 3.7 mmol/L (3.5-5.5); Total Protein, Blood 6.6 g/dL (6.4-8.2)
[2022-09-28 18:20] LABS: Bun/Creatinine Ratio 24.7 (12.0-20.0); Creatinine, Blood 0.85 mg/dL (0.60-1.20)
--- NOTE | 2022-09-28 18:33 | NUR ---
Summary. Pt arrived to ICU at approximately 1700. Insulin GTT started at 2 unit/hr with D5 1/2 NS at 150 ml/hr. PG placed by gas charger. Pt given anti-emetics for nausea, see emar. VS stable since admission, no acute events. Will continue to monitor and report off to shruthi HIGGINS. See chart for further details.
[2022-09-28 22:49] LABS: Source, Urine Voided
[2022-09-28 22:54] LABS: Bilirubin, Urine Neg (Neg); Blood, Urine Neg (Neg); Glucose Qualitative, Urine 4+ (Neg); Ketones, Urine 4+ (Neg); Leukocyte Esterase, Urine 1+ (Neg); Nitrite, Urine Neg (Neg); Protein, Urine 2+ (Neg); Urobilinogen, Urine NORM (Normal)
[2022-09-28 23:03] LABS: Appearance, Urine Hazy (Clear); Color, Urine Yellow (P-Yellow)
[2022-09-28 23:04] LABS: Bacteria Few /hpf; Red Blood Cells, Urine Not Seen /hpf (0-2); Squamous Epithelial Cells Few /hpf (Few); Transitional Epithelial Cells Few /hpf (0-Rare)
[2022-09-29] VITALS (7 sets, daily range): BP systolic 122–154; BP diastolic 77–97
[2022-09-29 00:57] LABS: Bun/Creatinine Ratio 23.8 (12.0-20.0); Calcium, Blood 8.3 mg/dL (8.5-10.1); Creatinine, Blood 0.76 mg/dL (0.60-1.20); Potassium, Blood 3.3 mmol/L (3.5-5.5)
[2022-09-29 05:13] LABS: BASOPHILS ABSOLUTE AUTO 0.02 K/mm3 (0.00-0.23); BASOPHILS PERCENT AUTO 0 % (0-2); EOSINOPHILS ABSOLUTE AUTO 0.07 K/mm3 (0.00-0.68); EOSINOPHILS PERCENT AUTO 1 % (0-6); Hemoglobin 14.4 g/dL (13.5-17.5); IMMATURE GRAN ABSOLUTE AUTO 0.03 K/mm3 (0.00-0.10); IMMATURE GRAN PERCENT AUTO 0 % (0-1); LYMPHOCYTES ABSOLUTE AUTO 2.07 K/mm3 (0.84-5.20); LYMPHOCYTES PERCENT AUTO 24 % (21-46); MONOCYTES ABSOLUTE AUTO 0.77 K/mm3 (0.16-1.47); MONOCYTES PERCENT AUTO 9 % (4-13); Mean Corpuscular HGB 29.4 pg (26.0-34.0); Mean Corpuscular HGB Conc 36.9 g/dL (31.5-36.5); Mean Corpuscular Volume 80 fL (80-100); NEUTROPHILS ABSOLUTE AUTO 5.59 K/mm3 (1.96-9.15); NEUTROPHILS PERCENT AUTO 65 % (41-73); Platelet Count 313 K/mm3 (150-400); RDW Standard Deviation 34.8 fL (35.1-46.3); Red Blood Cell Count 4.89 M/mm3 (4.30-5.90); White Blood Cell Count 8.55 K/mm3 (4.00-11.30)
[2022-09-29 05:45] LABS: Bun/Creatinine Ratio 22.1 (12.0-20.0); Calcium, Blood 8.3 mg/dL (8.5-10.1); Creatinine, Blood 0.77 mg/dL (0.60-1.20); Potassium, Blood 3.6 mmol/L (3.5-5.5)
--- NOTE | 2022-09-29 05:56 | NUR ---
SHIFT SUMMARY OVERNIGHT, PATIENT A/O X4. IRRITABLE AND DECLINING TO ANSWER QUESTIONS AT TIMES, BUT OTHERWISE COOPERATIVE WITH CARES. MONITOR SHOWING SR/ST, HR 80-100S. WITH AMBULATION, HR UP TO 150S. NPO. NAUSEOUS, BUT NO EMESIS; GIVEN PRN REGLAN, SEE MAR. CONTINUES ON INSULIN GTT FOR MANAGEMENT OF DKA. APPROPRIATE TO TRANSITION TO SUBQ INSULIN THIS AM. CALL LIGHT WITHIN REACH. CARES ONGOING.
--- NOTE | 2022-09-29 07:26 | NUR ---
Assumed care. Report received from shruthi HIGGINS. Pt resting in bed, on room air. Insulin infusing at 2 units/hr, D5 1/2NS infusing at 150 ml/hr. VS stable, continue to monitor.
[2022-09-29 08:59] LABS: Bun/Creatinine Ratio 17.4 (12.0-20.0); Calcium, Blood 8.6 mg/dL (8.5-10.1); Creatinine, Blood 0.86 mg/dL (0.60-1.20); Potassium, Blood 3.2 mmol/L (3.5-5.5)
--- NOTE | 2022-09-29 09:22 | NUR ---
PT LEFT AMA AT APPROXIMATELY 0905. PRIOR TO LEAVING PT INCREASINGLY AGITATED, CURSING AT STAFF MEMBERS. UNABLE TO REDIRECT VERBALLY. ALL BELONGINGS SENT OUT OF UNIT WITH PATIENT. PERIPHERAL IVS REMOVED, VS STABLE AT TIME OF TRANSFER.
== END 2022-09-29 08:50 | disposition left against medical advice (07) | DRG 638 ==
LOC: ER 13:48 → ICUW 16:32
PROVIDERS: Emergency Medicine; ADMIT Family Medicine
DX: E11.10 Type 2 diabetes mellitus with ketoacidosis without coma (principal); E87.1 Hypo-osmolality and hyponatremia; R65.10 Systemic inflammatory response syndrome (SIRS) of non-infectious origin without acute organ dysfunction; F12.90 Cannabis use, unspecified, uncomplicated; E87.6 Hypokalemia; Z53.29 Procedure and treatment not carried out because of patient's decision for other reasons; Z87.442 Personal history of urinary calculi; Z87.440 Personal history of urinary (tract) infections; Z91.148 Patient's other noncompliance with medication regimen for other reason
CPT/HCPCS: 36415; 80048; 80053; 81001; 82947; 83036; 83690; 85025; 87086; 93005; 93010; 96361; 96374; 99285-25; A9270; C1751; C9113; J1650; J1815; J2405; J2765; J3480; J7030; J7042; J7050

== ENCOUNTER 2023-05-11 10:10 | Emergency (ER) | payer OTHER ==
[~2023-05-11] VITALS: Ht 190.5 cm; Wt 86.2 kg
[2023-05-11 10:18] VITALS: BP 142/85
[2023-05-11] MEDS ORDERED: Ciprofloxacin2.5 ML BOTHEYES (12:40)
== END 2023-05-11 12:49 | disposition home or self-care (01) ==
LOC: ER 10:10
DX: H10.9 Unspecified conjunctivitis (principal); H53.8 Other visual disturbances
CPT/HCPCS: 99283; A9270; A9270-GY

== ENCOUNTER 2023-09-08 09:57 | Inpatient (IN) | payer OTHER ==
[~2023-09-08] VITALS: Ht 190.5 cm; Wt 78.2 kg
[2023-09-08] VITALS (11 sets, daily range): BP systolic 94–112; BP diastolic 58–77
[~2023-09-08 09:57] MED LIST changes: +Ciprofloxacin2.5 ML BOTHEYES
[2023-09-08 11:25] LABS: BASOPHILS ABSOLUTE AUTO 0.07 K/mm3 (0.00-0.23); BASOPHILS PERCENT AUTO 1 % (0-2); EOSINOPHILS ABSOLUTE AUTO 0.15 K/mm3 (0.00-0.68); EOSINOPHILS PERCENT AUTO 2 % (0-6); Hematocrit 39.2 % (37.0-53.0); Hemoglobin 13.4 g/dL (13.5-17.5); IMMATURE GRAN ABSOLUTE AUTO 0.02 K/mm3 (0.00-0.10); IMMATURE GRAN PERCENT AUTO 0 % (0-1); LYMPHOCYTES PERCENT AUTO 24 % (21-46); MONOCYTES ABSOLUTE AUTO 0.46 K/mm3 (0.16-1.47); MONOCYTES PERCENT AUTO 6 % (4-13); Mean Corpuscular HGB 30.8 pg (26.0-34.0); Mean Corpuscular HGB Conc 34.2 g/dL (31.5-36.5); Mean Corpuscular Volume 90 fL (80-100); Mean Platelet Volume 9.7 fL (9.1-12.4); NEUTROPHILS ABSOLUTE AUTO 5.02 K/mm3 (1.96-9.15); NEUTROPHILS PERCENT AUTO 67 % (41-73); Platelet Count 308 K/mm3 (150-400); RDW Coefficient Variation 13.6 % (11.7-14.2); RDW Standard Deviation 44.2 fL (35.1-46.3); Red Blood Cell Count 4.35 M/mm3 (4.30-5.90); White Blood Cell Count 7.52 K/mm3 (4.00-11.30)
[2023-09-08 11:54] LABS: Albumin, Blood 3.3 g/dL (3.4-5.0); Albumin/Globulin Ratio 0.8 (0.8-1.8); Bilirubin, Total 0.8 mg/dL (0.1-1.0); Bun/Creatinine Ratio 13.2 (12.0-20.0); Calcium, Blood 8.8 mg/dL (8.5-10.1); Creatinine, Blood 0.98 mg/dL (0.60-1.20); Globulin, Blood 4.4 g/dL (2.2-4.0); Potassium, Blood 3.2 mmol/L (3.5-5.5); Total Protein, Blood 7.7 g/dL (6.4-8.2)
[2023-09-08] MEDS ORDERED: NS 1,000 ML IV SCH ×2 (12:05→14:25)
[2023-09-08 12:34] LABS: Base Excess Venous -10.3 mmol/L; Bicarbonate Venous 16.2 mmol/L (24.0-30.0); PCO2 Venous 45.7 mmHg (38-42)
[2023-09-08] MEDS ORDERED: NS KCl 20mEq 1,000 ML IV SCH (12:55)
[2023-09-08] MEDS ORDERED: Potassium Chloride 20 MEQ TabCR PO ONE ×2 (14:20→22:30)
[2023-09-08] MEDS ORDERED: Potassium Chl 20MEQ/Water100ML 100 ML IV SCH (14:30)
[2023-09-08 15:02] LABS: Calcium, Blood 8.4 mg/dL (8.5-10.1); Creatinine, Blood 0.93 mg/dL (0.60-1.20); Potassium, Blood 3.1 mmol/L (3.5-5.5)
[2023-09-08] MEDS ORDERED: Potassium Chloride 40 MEQ in NS 250 ML IV ONE (15:25)
[2023-09-08 15:53] LABS: CHOL/HDL RATIO 2.4; Cholesterol 152 mg/dL (50-200); HDL Cholesterol 64 mg/dL (>39); LDL/HDL RATIO 0.8; Low Density Lipoprotein Chol 52 mg/dL (0-110); Triglycerides 179 mg/dL (30-160); Very Low Density Lipoprot Chol 36 mg/dL (6-32)
[2023-09-08 17:51] LABS: Source, Urine Clean Catch
[2023-09-08 18:00] LABS: Appearance, Urine Cloudy (Clear); Bilirubin, Urine Neg (Neg); Blood, Urine 2+ (Neg); Glucose Qualitative, Urine 4+ (Neg); Ketones, Urine 4+ (Neg); Leukocyte Esterase, Urine 3+ (Neg); Nitrite, Urine Neg (Neg); Protein, Urine 2+ (Neg); Specific Gravity, Urine 1.015 (1.003-1.022); Urobilinogen, Urine NORM (Normal)
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
[2023-09-08 18:13] LABS: U Amphetamine Screen Not Detected; U Barbituate Screen Not Detected; U Benzodiazapine Screen Not Detected; U Buprenorphine Screen Not Detected; U Cannabinoids Screen Not Detected; U Cocaine Screen Not Detected; U Methadone Screen Not Detected; U Methamphetamine Screen Not Detected; U Opiates Screen Not Detected; U Oxycodone Screen Not Detected; U Phencyclidine Screen Not Detected
[2023-09-08 18:15] LABS: Calcium, Blood 8.5 mg/dL (8.5-10.1); Potassium, Blood 3.4 mmol/L (3.5-5.5)
[2023-09-08 18:19] LABS: Color, Urine Pale Yellow (P-Yellow)
[2023-09-08 18:20] LABS: Yeast/Fungi Urine Many /hpf
[2023-09-08 18:21] LABS: Bacteria Many /hpf; Renal Epithelial Rare /hpf (0-Rare); Squamous Epithelial Cells Few /hpf (Few); White Blood Cells, Urine 50-100 /hpf (0-5)
[2023-09-08] MEDS ORDERED: Lactated Ringer's 1,000 ML IV SCH (18:55)
[2023-09-08] MEDS ORDERED: Insulin Regular 100 Unit/ML 1ML Dose IV ONE (18:55)
[2023-09-08] MEDS ORDERED: Insulin Regular 100 UNIT/ML 10ML Vial SC SCH (19:00)
[2023-09-08] MEDS ORDERED: Insulin Glargine-Yfgn 100 Unit/mL 3 ML SYR SC SCH (19:00)
--- NOTE | 2023-09-08 21:36 | NUR ---
ASSUMED CARE PT RESTING IN BED QUIETLY. LR INFUSING PER EMAR. PT DENIES CP, NAUSEA, AND SOB. STATES "IM JUST TIRED". SPO2 SPOT CHECKED >92% ON RA; MAP >65; HR IN THE 70'S.
[2023-09-08 22:10] LABS: Bun/Creatinine Ratio 10.6 (12.0-20.0); Creatinine, Blood 0.85 mg/dL (0.60-1.20); Potassium, Blood 3.1 mmol/L (3.5-5.5)
[2023-09-08] MEDS ORDERED: Potassium Chl 20MEQ/Water100ML 100 ML IV ONE (22:30)
--- NOTE | 2023-09-08 22:48 | NUR ---
UPDATE HOSPITALIST CALLED W/ UPDATES ON PT LABS. PER HOSPITALIST, NO INSULIN GTT FOR NOW W/ ORDERS FOR KCL SUPPLEMENTATION.
[2023-09-09] VITALS (7 sets, daily range): BP systolic 96–109; BP diastolic 57–78
[2023-09-09 03:14] LABS: Bun/Creatinine Ratio 9.4 (12.0-20.0); Calcium, Blood 8.2 mg/dL (8.5-10.1); Creatinine, Blood 0.96 mg/dL (0.60-1.20); Potassium, Blood 3.8 mmol/L (3.5-5.5)
[2023-09-09 06:40] LABS: Phosphorus, Blood 1.7 mg/dL (2.5-4.9)
--- NOTE | 2023-09-09 06:40 | NUR ---
SHIFT SUMMARY/TRANSFER PT REMAINS A&O X4. NO ACUTE EVENTS OVERNIGHT W/ PT RESTING/SLEEPING. PT CONTINUES TO DENY CP, SOB, AND NAUSEA. PT SELF STRAIGHT-CATHETERIZED. WHEN ASKED PT STATES IT'S D/T BLADDER, BUT WOULD NOT ELABORATE ANY FURTHER. PT EDUCATED ON IMPORTANCE OF MAINTAINING STERILITY, BUT PT REFUSED STERILE GLOVES. PT TRANSFERRED OUT AT 0630 W/ MEDS AND BELONGINGS.
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
--- NOTE | 2023-09-09 07:00 | NUR ---
DR CHAVEZ AND NURSING SUPERINTENDENT SANITATION NOTIFIED OF PT LEAVING AMA
[2023-09-09] MEDS ORDERED: Insulin Regular 100 UNIT/ML 10ML Vial SC SCH (07:30)
[2023-09-09] MEDS ORDERED: Atorvastatin 40 MG Tab PO SCH (09:00)
[2023-09-09] MEDS ORDERED: Enoxaparin 40 MG/0.4 ML SYR SC SCH (09:00)
[2023-09-09] MEDS ORDERED: Tamsulosin HCl 0.4 MG Cap PO SCH (09:00)
[2023-09-09] MEDS ORDERED: Aspirin 81 MG Chew PO SCH (09:00)
== END 2023-09-09 06:50 | disposition left against medical advice (07) | DRG 639 ==
LOC: ER 09:57 → ICUE 14:02 → SURS 09-09 06:19
PROVIDERS: Emergency Medicine; Family Medicine; Nurse Practitioner Acute Care; Physician Assistant; ADMIT Hospitalist
DX: E11.10 Type 2 diabetes mellitus with ketoacidosis without coma (principal); E87.6 Hypokalemia; N40.1 Benign prostatic hyperplasia with lower urinary tract symptoms; R33.8 Other retention of urine; T38.3X6A Underdosing of insulin and oral hypoglycemic [antidiabetic] drugs, initial encounter; Z91.138 Patient's unintentional underdosing of medication regimen for other reason; Z53.29 Procedure and treatment not carried out because of patient's decision for other reasons; Z79.4 Long term (current) use of insulin
CPT/HCPCS: 51701; 71045; 80048; 80053; 80061; 81001; 82803; 82947; 83036; 83605; 83735; 84100; 84145; 84484; 85025; 87086; 93005; 93010; 94760; 96361; 96365; 96366; 99285-25; A9270; C1751; J1815; J3480; J7030; J7050; J7120

== ENCOUNTER 2023-09-19 19:05 | Inpatient (IN) | payer OTHER ==
[~2023-09-19] VITALS: Ht 185.4 cm; Wt 68.4 kg
[2023-09-21 09:01] VITALS: BP 102/72
== END 2023-09-21 14:03 | disposition home or self-care (01) | DRG 638 ==
LOC: ER 19:05 → ICUE 20:51
PROVIDERS: ADMIT Student in an Organized Health Care Education/Training Program
DX: E11.10 Type 2 diabetes mellitus with ketoacidosis without coma (principal); N17.9 Acute kidney failure, unspecified; R65.10 Systemic inflammatory response syndrome (SIRS) of non-infectious origin without acute organ dysfunction; E83.39 Other disorders of phosphorus metabolism; N40.0 Benign prostatic hyperplasia without lower urinary tract symptoms; E87.6 Hypokalemia; E86.0 Dehydration; F12.90 Cannabis use, unspecified, uncomplicated; Z79.4 Long term (current) use of insulin; Z87.442 Personal history of urinary calculi; Z87.440 Personal history of urinary (tract) infections; Z91.148 Patient's other noncompliance with medication regimen for other reason